=== PATIENT | female | born 1955 | race Caucasian/White ===

== ENCOUNTER 2019-12-14 14:23 | Outpatient (CLI) | payer BC ==
--- NOTE | 2019-12-14 15:05 | CT ---
LOW DOSE CT SCAN OF THE CHEST WITHOUT IV CONTRAST FOR LUNG CANCER SCREENIN12/14/19 HISTORY: 64-year-old female with one pack per day smoking for 44 years and cough. FINDINGS: There is a calcified granuloma in the left lower lobe. No noncalcified nodules are seen. There is sca rring in the lung apices. No pleural or pericardial effusions are identified. There are vascular calc ifications without evidence of aneurysmal dilatation of the thoracic aorta. There are degenerative ch anges in the spine. Upper abdominal tomograms demonstrate calcified granuloma in the spleen. IMPRESSION: Lung RADS 2 - benign. RECOMMENDATION: Follow-up LDCT of the chest is recommended in 12 months. POS: OFF
== END 2019-12-14 14:24 | disposition home or self-care (01) ==
LOC: BICCT 14:23
PROVIDERS: ATTEND Internal Medicine
DX: Z12.2 Encounter for screening for malignant neoplasm of respiratory organs (principal); F17.210 Nicotine dependence, cigarettes, uncomplicated
CPT/HCPCS: G0297

== ENCOUNTER 2021-09-17 09:43 | Outpatient (CLI) | payer BC | END 2021-09-17 09:44 | disposition home or self-care (01) | LOC: SCSMRI 09:43 | PROVIDERS: ATTEND Orthopaedic Surgery | DX: S83.232A Complex tear of medial meniscus, current injury, left knee, initial encounter (principal) ==

== ENCOUNTER 2024-12-04 15:16 | Outpatient (CLI) | payer BC | END 2024-12-04 15:17 | disposition home or self-care (01) | LOC: BICMAMMO 15:16 | PROVIDERS: ATTEND Internal Medicine | DX: Z13.820 Encounter for screening for osteoporosis (principal); E55.9 Vitamin D deficiency, unspecified; Z78.0 Asymptomatic menopausal state; M81.0 Age-related osteoporosis without current pathological fracture | CPT/HCPCS: 77080 ==